=== PATIENT | male | born 1970 | race Caucasian/White ===

== ENCOUNTER 2020-09-05 15:20 | Day surgery (SDC) | payer OTHER ==
[2020-09-05] MEDS ORDERED: Depo-Medrol 40 MG/ML IM ONE (15:21)
[2020-09-05] MEDS ORDERED: Xylocaine 1% Vial 30 ML PF IJ ONE (15:21)
[2020-09-05] MEDS ORDERED: Sodium Chloride 0.9(Preservative Free) 10 ML IJ ONE (15:21)
[2020-09-05] MEDS ORDERED: DIPRIVAN 200 MG/20 ML IV ONE (17:24)
[2020-09-05] MEDS ORDERED: Lactated Ringers 1,000 ML IV ONE (17:34)
--- NOTE | 2020-09-06 08:02 | XRAY ---
16 seconds fluoroscopy time in surgery for lumbar CIARAN.
--- NOTE | 2020-09-06 10:45 | XRAY ---
Indication: Lumbar CIARAN. Intraoperative fluoroscopy provided for 16 seconds. Single lateral digital spot image submitted for interpretation demonstrates posterior needle tip projecting just posterior to L4-L5 interspace. Small amount of contrast injected for needle tip placement. Correlate with intraoperative findings/report.
== END 2020-09-05 17:27 | disposition home or self-care (01) ==
LOC: SDC-PAIN 15:20
PROVIDERS: ATTEND Psychiatry & Neurology Pain Medicine
DX: M54.16 Radiculopathy, lumbar region (principal); Z79.899 Other long term (current) drug therapy
CPT/HCPCS: 62323; 72020; 77003; J1030; J2001; J2704; Q9966